=== PATIENT | female | born 1990 | race American Indian/Alaskan Native ===

== ENCOUNTER 2019-10-07 00:33 | Emergency (ER) | payer SELFPAY ==
[2019-10-07 00:53] VITALS: BP 139/91
[2019-10-07 01:29] LABS: Bilirubin,Urine NEG (Negative); Blood,Urine LG (Negative); Color,Urine Straw (Yellow); Protein,Urine <15 mg/dL mg/dL (Negative); Urobilinogen,Urine < 2.0 mg/dL (<2.0)
[2019-10-07 01:34] LABS: HCG Qualitative,Urine Negative (Negative)
== END 2019-10-07 03:37 | disposition home or self-care (01) ==
LOC: ED 00:33
DX: N39.0 Urinary tract infection, site not specified (principal)
CPT/HCPCS: 81001; 81025; 99283

== ENCOUNTER 2020-12-02 22:20 | Emergency (ER) | payer MEDICAID ==
[2020-12-03 01:04] VITALS: BP 163/100
[2020-12-03 01:44] LABS: Bilirubin,Urine NEG (Negative); Blood,Urine NEG (Negative); Color,Urine Straw (Yellow); Protein,Urine <15 mg/dL mg/dL (Negative); Urobilinogen,Urine < 2.0 mg/dL (<2.0)
[2020-12-03 01:45] LABS: HCG Qualitative,Urine Negative (Negative)
[2020-12-03] MEDS ORDERED: traMADol 50 MG TAB PO ONE (03:11)
--- NOTE | 2020-12-03 03:15 | Emergency Department Report ---
ED Abdominal Pain HPI - General Chief Complaint: Urogenital-Female Stated Complaint: UTI Time Seen by Provider: 12/03/20 01:56 Source: patient Mode of arrival: Ambulatory Limitations: No Limitations - History of Present Illness Initial Comments: Is a 30-year-old female who presents for urinary urgency mild hematuria and vaginal odor x3 days. Patient denies fevers or chills, there is no nausea vomiting, no fever or chills. LMP 2 weeks ago. Symptoms are described as 4/10. Symptoms are relieved by nothing. Symptoms are exacerbated by palpation and m ovement. Complaint: abdominal pain - Related Data Previous Rx's Medication Instructions Recorded Last Taken Type Fluconazole (Nf) [Diflucan TAB] 150 mg PO ONCE #1 tablet 10/07/19 Unknown Rx Ibuprofen [Motrin] 600 mg PO Q8H PRN #15 tablet 10/07/19 Unknown Rx Phenazopyridine [Pyridium] 200 mg PO Q8H #21 tab 10/07/19 Unknown Rx cephALEXin [Keflex] 500 mg PO Q8HR #30 cap 10/07/19 Unknown Rx metroNIDAZOLE [Flagyl] 500 mg PO Q12HR #14 tab 12/03/20 Unknown Rx Allergies Allergy/AdvReac Type Severity Reaction Status Date / Time No Known Allergies Allergy Unverified 10/07/19 00:54 ED Review of Systems ROS: Stated complaint: UTI Other details as noted in HPI Constitutional: denies: chills, fever Eyes: denies: eye pain, eye discharge, vision change ENT: denies: ear pain, throat pain Respiratory: denies: cough, shortness of breath, wheezing Cardiovascular: denies: chest pain, palpitations Endocrine: no symptoms reported Gastrointestinal: abdominal pain, nausea. denies: diarrhea Genitourinary: urgency, dysuria, frequency, hematuria. denies: discharge Musculoskeletal: denies: back pain, joint swelling, arthralgia Skin: denies: rash, lesions Neurological: denies: headache, weakness, paresthesias Psychiatric: denies: anxiety, depression Hematological/Lymphatic: denies: easy bleeding, easy bruising ED Past Medical Hx - Past Medical History Previous Medical History?: No - Surgical History Past Surgical History?: No - Social History Smoking Status: Never Smoker Substance Use Type: None - Medications Home Medications: Home Medications Medication Instructions Recorded Confirmed Last Taken Type Fluconazole (Nf) [Diflucan TAB] 150 mg PO ONCE #1 tablet 10/07/19 Unknown Rx Ibuprofen [Motrin] 600 mg PO Q8H PRN #15 tablet 10/07/19 Unknown Rx Phenazopyridine [Pyridium] 200 mg PO Q8H #21 tab 10/07/19 Unknown Rx cephALEXin [Keflex] 500 mg PO Q8HR #30 cap 10/07/19 Unknown Rx metroNIDAZOLE [Flagyl] 500 mg PO Q12HR #14 tab 12/03/20 Unknown Rx ED Physical Exam - General Limitations: No Limitations General appearance: alert, in no apparent distress - Head Head exam: Present: atraumatic, normocephalic - Eye Eye exam: Present: normal appearance, EOMI Pupils: Present: normal accommodation - ENT ENT exam: Present: mucous membranes moist - Neck Neck exam: Present: normal inspection, full ROM. Absent: tenderness - Respiratory Respiratory exam: Present: normal lung sounds bilaterally. Absent: respiratory distress, wheezes, stridor, chest wall tenderness - Cardiovascular Cardiovascular Exam: Present: regular rate, normal rhythm, normal heart sounds. Absent: systolic murmur, diastolic murmur, rubs, gallop - GI/Abdominal GI/Abdominal exam: Present: soft, normal bowel sounds. Absent: distended, tenderness, guarding - Rectal Rectal exam: Present: deferred - External exam: Present: other (deferred) - Extremities Exam Extremities exam: Present: normal inspection, full ROM. Absent: tenderness - Back Exam Back exam: Present: normal inspection, full ROM. Absent: CVA tenderness (R), CVA tenderness (L) - Neurological Exam Neurological exam: Present: alert, oriented X3, CN II-XII intact - Psychiatric Psychiatric exam: Present: normal affect - Skin Skin exam: Present: warm, dry, intact, normal color. Absent: rash ED Course Vital Signs 12/03/20 01:01 Temperature 98.6 F Pulse Rate 67 Respiratory 18 Rate Blood Pressure 163/100 O2 Sat by Pulse 100 Oximetry ED Medical Decision Making - Lab Data Labs 12/03/20 00:45 Urine Color Straw Urine Turbidity Clear Urine pH 6.0 Ur Specific [place] 1.010 Urine Protein <15 mg/dl Urine Glucose (UA) Neg Urine Ketones Neg Urine Blood Neg Urine Nitrite Neg Urine Bilirubin Neg Urine Urobilinogen < 2.0 Ur Leukocyte Esterase Neg Urine WBC (Auto) 3.0 Urine RBC (Auto) 2.0 U Epithel Cells (Auto) 2.0 Urine Yeast (Budding) Few Urine HCG, Qual Negative - Medical Decision Making ua noted for yeast, min wbc, plan: dc to home , follow up with pcp in 2-3 days, return to emergency if symptoms worsen. Critical care attestation.: If time is entered above; I have spent that time in minutes in the direct care of this critically ill patient, excluding procedure time. ED Disposition Clinical Impression: Melissa cystitis Vaginitis Qualifiers: Chronicity: acute Qualified Code(s): N76.0 - Acute vaginitis Disposition: DC-01 TO HOME OR SELFCARE Is pt being admited?: No Does the pt Need Aspirin: No Condition: Stable Instructions: Vaginitis Additional Instructions: Take medications as prescribed, do not drink alcohol with this medication (flagyl), follow up with your doctor in 2-3 days, return to emergency if symptoms worsen. Prescriptions: metroNIDAZOLE [Flagyl] 500 mg PO Q12HR #14 tab Referrals: [facility] [Provider Group] - 3-5 Days Forms: Work/School Release Form(ED) Time of Disposition: 03:35
[2020-12-03] MEDS: FLUCONAZOLE 200 MG TAB PO ONE ×2 (03:48→03:55)
== END 2020-12-03 04:03 | disposition home or self-care (01) ==
LOC: ED 22:20
DX: B37.41 Candidal cystitis and urethritis (principal); N76.0 Acute vaginitis; Z79.899 Other long term (current) drug therapy
CPT/HCPCS: 81001; 81025